=== PATIENT | male | born 1980 | race Caucasian/White ===

== ENCOUNTER → 2018-02-22 | Outpatient (CLI) | payer OTHER ==
[2014-06-17 12:42] VITALS: BP 133/83
[~2018-02-22] MED LIST: KETOROLAC10 MG PO; NORCO 325 MG-51 TA1 PO; ZYRTEC10 MG PO
== END ==
LOC: RAD 07:56
DX: N20.0 Calculus of kidney (principal)

== ENCOUNTER → 2019-02-04 | Outpatient (CLI) | payer OTHER ==
[2014-06-17 12:42] VITALS: BP 133/83
== END ==
LOC: RAD 15:00
DX: N20.0 Calculus of kidney (principal); Z87.442 Personal history of urinary calculi

== ENCOUNTER → 2021-05-31 | Day surgery (SDC) | payer OTHER | END | disposition home or self-care (01) | LOC: MSO 07:31 | DX: K21.9 Gastro-esophageal reflux disease without esophagitis (principal); K44.9 Diaphragmatic hernia without obstruction or gangrene; R10.13 Epigastric pain | CPT/HCPCS: 00731; J2704; J7120 ==